=== PATIENT | female | born 1995 | race Caucasian/White ===

== ENCOUNTER → 2023-12-18 14:05 | Outpatient (REF) | payer OTHER, SELFPAY | LOC: WDC 14:05 | PROVIDERS: ATTENDING PHYSICIAN Obstetrics & Gynecology; FAMILY PHYSICIAN Internal Medicine | DX: N63.22 Unspecified lump in the left breast, upper inner quadrant (principal) | CPT/HCPCS: 76642 ==

== ENCOUNTER → 2024-03-17 11:11 | Outpatient (REF) | payer OTHER, SELFPAY ==
[2024-03-17 13:34] LABS: Hepatitis B Surface Antigen Negative (Negative)
[2024-03-17 13:44] LABS: HIV Combo Negative (Negative)
[2024-03-17 13:51] LABS: Hepatitis B Surface Antibody Positive; Hepatitis C Antibody Negative (Negative)
== END ==
LOC: OHS 11:11
PROVIDERS: ATTENDING PHYSICIAN Nurse Practitioner Family
DX: Z57.8 Occupational exposure to other risk factors (principal)
CPT/HCPCS: 36415; 86706; 86803; 87340; 87389

== ENCOUNTER → 2024-05-07 16:50 | Outpatient (REF) | payer OTHER, SELFPAY ==
[2024-05-16 21:03] LABS: Chlamydia trachomatis,ThinPrep Negative (Negative); Neisseria gonorrhoeae,ThinPrep Negative (Negative); Specimen Source Cervical
== END ==
LOC: CPAP 16:50
PROVIDERS: ATTENDING PHYSICIAN Nurse Practitioner Family
DX: Z11.3 Encounter for screening for infections with a predominantly sexual mode of transmission (principal); Z32.01 Encounter for pregnancy test, result positive; Z11.51 Encounter for screening for human papillomavirus (HPV)
CPT/HCPCS: 87491; 87591

== ENCOUNTER → 2024-05-08 15:26 | Outpatient (REF) | payer OTHER, SELFPAY ==
[2024-05-08 17:18] LABS: % Basophils 0.5 % (0-2); % Eosinophils 0.8 % (0-6); % Immature Granulocytes 0.4 % (0-0.5); % Lymphocytes 26.5 % (20.5-51.1); % Neutrophils 65.8 % (42.2-75.2); Absolute Basophils 0.1 10^3/uL (0-0.2); Absolute Eosinophils 0.1 10^3/uL (0-0.7); Absolute Lymphocytes 2.8 10^3/uL (1.2-3.4); Absolute Monocytes 0.6 10^3/uL (0.1-0.6); Hematocrit 35.5 % (37.0-47.0); Hemoglobin 12.3 g/dL (12.0-16.0); Mean Corp Hgb Conc. 34.6 g/dL (33.0-37.0); Mean Corpuscular Hgb 30.4 pg (27.0-31.0); Mean Corpuscular Volume 87.7 fL (81.0-99.0); Mean Platelet Volume 10.7 fL (7.4-10.4); Nucleated Red Blood Cells % 0 %; Platelet Count 196 10^3/uL (130-400); Red Blood Cell Count 4.05 10^6/uL (4.20-5.40); Urine Albumin Negative (Neg - Trace); Urine Bilirubin Negative (Negative); Urine Character Clear (Clear); Urine Color Yellow; Urine Glucose Negative (Negative); Urine Ketone Negative (Negative); Urine Leukocyte 1+ (Negative); Urine Nitrite Negative (Negative); Urine Occult Blood Negative (Negative); Urine Urobilinogen Negative (Neg - 1+); White Blood Cell Count 10.6 10^3/uL (4.8-10.8)
[2024-05-08 17:46] LABS: Urine Bacteria Few (Negative); Urine Red Blood Cell 0-2 /HPF (0-2); Urine Squamous Cell 26-30 /LPF (Few); Urine White Cell 30-40 /HPF (0-5)
[2024-05-08 20:02] LABS: Hepatitis B Surface Antigen Negative (Negative)
[2024-05-08 20:19] LABS: Hepatitis C Antibody Negative (Negative)
[2024-05-09 09:45] LABS: Glycohemoglobin (HgbA1c) 4.8 % (4.0-5.6)
[2024-05-09 15:06] LABS: Syphilis/T. pallidum Ab Reflex Negative (Negative)
== END ==
LOC: REG 15:26
PROVIDERS: ATTENDING PHYSICIAN Nurse Practitioner Family; FAMILY PHYSICIAN Internal Medicine
DX: Z31.430 Encounter of female for testing for genetic disease carrier status for procreative management (principal); Z32.01 Encounter for pregnancy test, result positive
CPT/HCPCS: 81003; 81015; 81220; 81243; 83036; 84702; 85025; 86780; 86803; 86850; 86900; 86901; 87086; 87340; 87389

== ENCOUNTER → 2024-05-19 08:14 | Outpatient (REF) | payer OTHER, SELFPAY ==
[2024-05-19 09:23] LABS: Hematocrit 38.8 % (37.0-47.0); Hemoglobin 13.5 g/dL (12.0-16.0); Mean Corp Hgb Conc. 34.8 g/dL (33.0-37.0); Mean Corpuscular Hgb 30.4 pg (27.0-31.0); Mean Corpuscular Volume 87.4 fL (81.0-99.0); Mean Platelet Volume 10.5 fL (7.4-10.4); Platelet Count 188 10^3/uL (130-400); Red Blood Cell Count 4.44 10^6/uL (4.20-5.40)
[2024-05-19 09:37] LABS: ALT (SGPT) 21 U/L (0-35); AST (SGOT) 20 U/L (14-36); Albumin 4.8 g/dl (3.5-5.0); Alkaline Phosphatase 82 U/L (38-126); Blood Urea Nitrogen 10 mg/dl (7-17); Calcium 9.6 mg/dl (8.4-10.2); Carbon Dioxide 22 mmol/L (22-30); Chloride 103 mmol/L (98-107); Direct Bilirubin 0.2 mg/dl (0.0-0.4); Glucose 88 mg/dl (70-99); Potassium 4.4 mmol/L (3.5-5.1); Sodium 136 mmol/L (135-145); Total Protein 7.1 g/dl (6.3-8.2); eGFR > 60.00
[2024-05-19 11:07] LABS: Hepatitis B Surface Antigen Negative (Negative)
[2024-05-19 11:16] LABS: HIV Combo Negative (Negative)
[2024-05-19 11:25] LABS: Hepatitis B Surface Antibody Positive; Hepatitis C Antibody Negative (Negative)
== END ==
LOC: OHS 08:14
PROVIDERS: ATTENDING PHYSICIAN Nurse Practitioner Family
DX: Z57.8 Occupational exposure to other risk factors (principal)
CPT/HCPCS: 36415; 80053; 82248; 85027; 86706; 86803; 87340; 87389

== ENCOUNTER → 2024-05-27 14:43 | Outpatient (REF) | payer OTHER, SELFPAY | LOC: WDC 14:43 | PROVIDERS: ATTENDING PHYSICIAN Nurse Practitioner Family | DX: R92.8 Other abnormal and inconclusive findings on diagnostic imaging of breast (principal); N63.10 Unspecified lump in the right breast, unspecified quadrant; N60.19 Diffuse cystic mastopathy of unspecified breast | CPT/HCPCS: 76642 ==

== ENCOUNTER → 2024-06-12 15:35 | Outpatient (REF) | payer OTHER, SELFPAY | LOC: PNTC 15:35 | PROVIDERS: ATTENDING PHYSICIAN Obstetrics & Gynecology | DX: Z34.01 Encounter for supervision of normal first pregnancy, first trimester (principal) | CPT/HCPCS: 36415 ==

== ENCOUNTER → 2024-06-17 13:42 | Outpatient (REF) | payer OTHER, SELFPAY | LOC: PNTC 13:42 | PROVIDERS: ATTENDING PHYSICIAN Obstetrics & Gynecology | DX: Z36.0 Encounter for antenatal screening for chromosomal anomalies (principal); Z36.82 Encounter for antenatal screening for nuchal translucency | CPT/HCPCS: 76801; 76813 ==

== ENCOUNTER → 2024-07-03 15:12 | Outpatient (REF) | payer OTHER, SELFPAY ==
[2024-07-03 18:55] LABS: Hepatitis B Core Ab, Total Negative (Negative); Hepatitis B Surface Antibody Positive
[2024-07-03 20:27] LABS: Rubella Positive
== END ==
LOC: REG 15:12
PROVIDERS: ATTENDING PHYSICIAN Obstetrics & Gynecology; FAMILY PHYSICIAN Internal Medicine
DX: Z34.92 Encounter for supervision of normal pregnancy, unspecified, second trimester (principal)
CPT/HCPCS: 36415; 82105; 86704; 86706; 86762

== ENCOUNTER 2024-07-25 13:23 | Observation (INO) | payer OTHER, SELFPAY ==
[2024-07-25 13:40] VITALS: BP 124/83; BMI 23.2
== END 2024-07-25 13:58 | disposition home or self-care (01) ==
LOC: LDRP 13:23
PROVIDERS: ADMITTING PHYSICIAN Obstetrics & Gynecology; FAMILY PHYSICIAN Internal Medicine
DX: O26.892 Other specified pregnancy related conditions, second trimester (principal); R10.9 Unspecified abdominal pain; Z3A.18 18 weeks gestation of pregnancy; W01.0XXA Fall on same level from slipping, tripping and stumbling without subsequent striking against object, initial encounter; Y93.9 Activity, unspecified; Y92.239 Unspecified place in hospital as the place of occurrence of the external cause; Y99.0 Civilian activity done for income or pay; Z88.0 Allergy status to penicillin
CPT/HCPCS: 59899; G0378

== ENCOUNTER → 2024-09-22 15:13 | Outpatient (REF) | payer OTHER, SELFPAY ==
[2024-09-22 17:23] LABS: % Basophils 0.3 % (0-2); % Eosinophils 0.2 % (0-6); % Immature Granulocytes 0.4 % (0-0.5); % Lymphocytes 16.7 % (20.5-51.1); % Neutrophils 78.4 % (42.2-75.2); Absolute Immature Granulocytes 0.1 10^3/uL (0-0.05); Absolute Lymphocytes 2.2 10^3/uL (1.2-3.4); Absolute Monocytes 0.5 10^3/uL (0.1-0.6); Absolute Neutrophils 10.5 10^3/uL (1.4-6.5); Hematocrit 33.6 % (37.0-47.0); Hemoglobin 11.8 g/dL (12.0-16.0); Mean Corp Hgb Conc. 35.1 g/dL (33.0-37.0); Mean Corpuscular Hgb 31.6 pg (27.0-31.0); Mean Corpuscular Volume 90.1 fL (81.0-99.0); Mean Platelet Volume 11.1 fL (7.4-10.4); Nucleated Red Blood Cells % 0 %; Platelet Count 168 10^3/uL (130-400); Red Blood Cell Count 3.73 10^6/uL (4.20-5.40); Red Cell Dist. Width 12.9 % (11.5-14.5); White Blood Cell Count 13.4 10^3/uL (4.8-10.8)
[2024-09-22 17:29] LABS: 1 Hour after 50gm 156 mg/dl
[2024-09-23 14:10] LABS: Syphilis/T. pallidum Ab Reflex Negative (Negative)
== END ==
LOC: REG 15:13
PROVIDERS: ATTENDING PHYSICIAN Obstetrics & Gynecology
DX: Z34.93 Encounter for supervision of normal pregnancy, unspecified, third trimester (principal)
CPT/HCPCS: 36415; 82950; 85025; 86780

== ENCOUNTER → 2024-10-01 06:49 | Outpatient (REF) | payer OTHER, SELFPAY ==
[2024-10-01 07:23] LABS: Glucose for Tolerance Test 60 mg/dl
[2024-10-01 10:49] LABS: Glucose for Tolerance Test 168 mg/dl
[2024-10-01 10:53] LABS: Glucose for Tolerance Test 171 mg/dl
[2024-10-01 12:03] LABS: Glucose for Tolerance Test 148 mg/dl
== END ==
LOC: REG 06:49
PROVIDERS: ATTENDING PHYSICIAN Obstetrics & Gynecology; FAMILY PHYSICIAN Internal Medicine
DX: Z34.90 Encounter for supervision of normal pregnancy, unspecified, unspecified trimester (principal)
CPT/HCPCS: 36415; 82951

== ENCOUNTER → 2024-10-14 15:27 | Outpatient (REF) | payer OTHER, SELFPAY ==
--- NOTE | 2024-10-14 14:29 | PN.DIAED06 ---
Meal Plan - Gestational
- Breakfast
Gestational Diabetes Meal Plan Name: 2000 calories
Breakfast - Total Carbohydrate (grams): 45 (1 carb = 15 grams)
Breakfast - Starch Carbohydrate: 2 (carbs = starch, milk, fruit)
Breakfast - Fruit Carbohydrate: 0 (no fruit or juice before noon)
Breakfast - Milk Carbohydrate: 1
Breakfast - Nonstarchy Vegetables: Yes
Breakfast - Meat/Protein: 1 (1 serving protein = 1 oz = 7 grams)
Breakfast - Fat: 2 (1 fat serving = 5 grams)
- Morning Snack
Morning Snack - Total Carbohydrate (grams): 30
Morning Snack - Starch Carbohydrate: 1
Morning Snack - Fruit Carbohydrate: 0 (no fruit or juice before noon)
Morning Snack - Milk Carbohydrate: 1
Morning Snack - Nonstarchy Vegetables: Yes
Morning Snack - Meat/Protein: 0
Morning Snack - Fat: 0
- Lunch
Lunch - Total Carbohydrate (grams): 45
Lunch - Starch Carbohydrate: 1
Lunch - Fruit Carbohydrate: 1
Lunch - Milk Carbohydrate: 1
Lunch - Nonstarchy Vegetables: Yes
Lunch - Meat/Protein: 2
Lunch - Fat: 2
- Afternoon Snack
Afternoon Snack - Total Carbohydrate (grams): 30
Afternoon Snack - Starch Carbohydrate: 1
Afternoon Snack - Fruit Carbohydrate: 1
Afternoon Snack - Milk Carbohydrate: 0
Afternoon Snack - Nonstarchy Vegetables: Yes
Afternoon Snack - Meat/Protein: 1
Afternoon Snack - Fat: 0
- Dinner
Dinner - Total Carbohydrate (grams): 45
Dinner - Starch Carbohydrate: 2
Dinner - Fruit Carbohydrate: 1
Dinner - Milk Carbohydrate: 0
Dinner - Nonstarchy Vegetables: Yes
Dinner - Meat/Protein: 2
Dinner - Fat: 2
- Evening Snack
Evening Snack - Total Carbohydrate (grams): 45
Evening Snack - Starch Carbohydrate: 1
Evening Snack - Fruit Carbohydrate: 1
Evening Snack - Milk Carbohydrate: 1
Evening Snack - Nonstarchy Vegetables: Yes
Evening Snack - Meat/Protein: 1
Evening Snack - Fat: 0
--- NOTE | 2024-10-15 08:59 | PN.DE ---
Diabetes Education
- -
10/14/2024 GESTATIONAL DIABETES CONSULT
Met with Ann bartlett for medical nutrition therapy. G1,P0, currently at 30 weeks of gestation, with an GENOVEVA of 12/24/2024.
Explained glucose metabolism in body and what occurs during to cause increase blood sugar. Discussed importance of keeping BS well controlled to avoid complications to the baby during and after (macrosomia, hypoglycemia). I explained
that stress and lack of sleep can also increase glucose levels, she states that her sleep is interrupted and does feel high stress. Discuss importance of 6+ hours a night and encouraged stress management techniques.
Discussed macronutrients, provided with 2000 teddy GDM meal plan and proper food combination and portions of carbohydrates, proteins, healthy fats.
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 Encouraged additional activity to help keep glucose low.
I provided her with a Contout Next glucometer, she presented with lancets and test strips. She is skilled in checking glucose with a glucometer, verbally proper testing technique, testing sites and testing pattern. She is aware to test FBS and 2
hr pp each meal. Expected results for FBS <95 mg/dl and 2 hr pp <120 mg/dl. Noted for blood sugar of 116mg/dl 1 hr after breakfast this morning. Log sheet provided for her to record results, she will send a 4-day meal log with all her FBG and 2hr
Post prandial glucose numbers to this office for review. In addition, she will send all her glucose readings [facility] every Sunday.
She was encouraged to reach out should she require insulin.
== END ==
LOC: DES 15:27
PROVIDERS: ATTENDING PHYSICIAN Obstetrics & Gynecology
DX: O24.419 Gestational diabetes mellitus in pregnancy, unspecified control (principal)
CPT/HCPCS: 99078

== ENCOUNTER → 2024-10-23 10:54 | Outpatient (REF) | payer OTHER, SELFPAY | LOC: PNTC 10:54 | PROVIDERS: ATTENDING PHYSICIAN Student in an Organized Health Care Education/Training Program | DX: O24.419 Gestational diabetes mellitus in pregnancy, unspecified control (principal) | CPT/HCPCS: 76816 ==

== ENCOUNTER → 2024-11-20 13:21 | Outpatient (REF) | payer OTHER, SELFPAY | LOC: PNTC 13:21 | PROVIDERS: ATTENDING PHYSICIAN Obstetrics & Gynecology | DX: O24.419 Gestational diabetes mellitus in pregnancy, unspecified control (principal) | CPT/HCPCS: 76816 ==

== ENCOUNTER → 2024-11-28 15:59 | Outpatient (REF) | payer OTHER, SELFPAY | LOC: CLAB 15:59 | PROVIDERS: ATTENDING PHYSICIAN Obstetrics & Gynecology | DX: Z36.85 Encounter for antenatal screening for Streptococcus B (principal) | CPT/HCPCS: 87070 ==

== ENCOUNTER → 2024-12-18 13:22 | Outpatient (REF) | payer OTHER, SELFPAY | LOC: PNTC 13:22 | PROVIDERS: ATTENDING PHYSICIAN Student in an Organized Health Care Education/Training Program | DX: O24.419 Gestational diabetes mellitus in pregnancy, unspecified control (principal) | CPT/HCPCS: 76816 ==

== ENCOUNTER 2024-12-24 19:32 | Inpatient (IN) | payer OTHER, SELFPAY ==
[2024-12-24 19:47] VITALS: BMI 23.5
[2024-12-24 19:49] VITALS: BP 138/89
[2024-12-24 20:14] LABS: Hematocrit 34.9 % (37.0-47.0); Hemoglobin 12.6 g/dL (12.0-16.0); Mean Corp Hgb Conc. 36.1 g/dL (33.0-37.0); Mean Corpuscular Volume 87.7 fL (81.0-99.0); Nucleated Red Blood Cells % 0 %; Platelet Count 118 10^3/uL (130-400); Red Cell Dist. Width 12.3 % (11.5-14.5)
[2024-12-24] MEDS: LR 1000 IV (20:49)
[2024-12-24] MEDS: PITOCIN 30 UNITS/NSS 500 ML IV (20:49)
[2024-12-24 21:27] LABS: ALT (SGPT) 20 U/L (0-35); AST (SGOT) 25 U/L (14-36); Albumin 3.7 g/dl (3.5-5.0); Alkaline Phosphatase 250 U/L (38-126); Blood Urea Nitrogen 28 mg/dl (7-17); Calcium 9.0 mg/dl (8.4-10.2); Carbon Dioxide 21 mmol/L (22-30); Chloride 102 mmol/L (98-107); Estimated Creatinine Clearance 76 ml/min; Glucose 72 mg/dl (70-99); Potassium 3.9 mmol/L (3.5-5.1); Sodium 130 mmol/L (135-145); Total Protein 6.4 g/dl (6.3-8.2); eGFR > 60.00
[2024-12-25 03:39] LABS: Glucose - Point of Care 78 mg/dl (70-99)
[2024-12-25] MEDS: LR 1000 IV ×2 (04:35→13:56)
[2024-12-25] MEDS: FENTANYL/BUPIVACAINE 100 EPIDURAL ×2 (04:39→13:56)
[2024-12-25] MEDS: SUBLIMAZE 100 MCG EPIDURAL (04:39)
[2024-12-25 06:38] LABS: Glucose - Point of Care 74 mg/dl (70-99)
[2024-12-25 08:30] LABS: Glucose - Point of Care 80 mg/dl (70-99)
[2024-12-25] MEDS: TUMS CHEWABLE TABLET 400 MG PO (10:37)
[2024-12-25 10:43] LABS: Glucose - Point of Care 72 mg/dl (70-99)
[2024-12-25 12:45] LABS: Glucose - Point of Care 82 mg/dl (70-99)
[2024-12-25] MEDS: HEMABATE 250 MCG IM (14:38)
[2024-12-25] MEDS: TRANEXAMIC ACID 100 IV (14:39)
[2024-12-25] MEDS: CYTOTEC 800 MCG SL (14:44)
[2024-12-25] MEDS: METHERGINE INJECTION 0.2 MG IM (14:47)
[2024-12-25 15:05] LABS: Hematocrit 36.2 % (37.0-47.0); Hemoglobin 13.0 g/dL (12.0-16.0)
[2024-12-25] MEDS: ZOFRAN 4 MG IV (15:10)
[2024-12-25 15:23] LABS: INR 0.89; PT 12.6 Sec (11.4-14.6)
[2024-12-25 15:24] LABS: APTT 27.3 Sec (23.4-35.0)
[2024-12-25 15:37] LABS: Mean Corp Hgb Conc. 36.4 g/dL (33.0-37.0); Mean Corpuscular Volume 88.1 fL (81.0-99.0); Nucleated Red Blood Cells % 0 %; Platelet Count 139 10^3/uL (130-400); Red Cell Dist. Width 12.3 % (11.5-14.5)
[2024-12-25] MEDS: GENTAMICIN 58 MG IV (17:01)
[2024-12-25] MEDS: CLEOCIN 50 IV (17:53)
[2024-12-25] MEDS: TYLENOL 650 MG PO (20:06)
[2024-12-25] MEDS: PEPCID 40 MG PO (21:56)
[2024-12-26] MEDS: CLEOCIN 50 IV ×2 (01:55→10:06)
[2024-12-26 04:53] LABS: Hematocrit 32.6 % (37.0-47.0); Hemoglobin 11.4 g/dL (12.0-16.0); Mean Corp Hgb Conc. 35.0 g/dL (33.0-37.0); Mean Corpuscular Volume 88.6 fL (81.0-99.0); Nucleated Red Blood Cells % 0 %; Platelet Count 107 10^3/uL (130-400); Red Cell Dist. Width 12.6 % (11.5-14.5)
[2024-12-26] MEDS: TYLENOL 650 MG PO ×2 (06:32→20:01)
[2024-12-26 07:46] LABS: Cap Blood Urea Nitrogen - POC 16 mg/dl (3-13); Cap Hemoglobin Calculated -POC 14.8; Capillary Blood Gas B.E. - POC -4.3 mmol/L; Capillary Blood Gas HCO3 - POC 24 mmol/L (13-22); Capillary Blood Gas pCO2 - POC 53 mmHg (27-70); Capillary Blood Gas pH -POC 7.25 (7.27-7.47); Capillary Blood Gas pO2 - POC < 18 mmHg (84-95); Capillary Chloride - POC 100 mmol/L (96-111); Capillary Creatinine - POC 0.77 mg/dl (0.3-1.0); Capillary Glucose - POC 78 mg/dl (40-115); Capillary Hematocrit - POC 43 % PCV (42-60); Capillary Ionized Calcium -POC 1.55 mmol/L (1.15-1.33); Capillary Potassium - POC 4.4 mmol/L (3.2-5.5); Capillary Sodium - POC 131 mmol/L (133-146)
[2024-12-26] MEDS: PRENATAL PLUS 1 TABLET PO (07:53)
[2024-12-26 08:18] LABS: Cord VBG B.E. - POC -4.6 mmol/L; Cord VBG HCO3 - POC 21 mmol/L; Cord VBG pCO2 - POC 41 mmHg; Cord VBG pH - POC 7.32; Cord VBG pO2 - POC < 18 mmHg
[2024-12-26 13:16] LABS: Syphilis/T. pallidum Ab Reflex Negative (Negative)
[2024-12-26] MEDS: PEPCID 40 MG PO (22:06)
[2024-12-27] MEDS: TYLENOL 650 MG PO ×2 (03:19→08:07)
[2024-12-27] MEDS: PRENATAL PLUS 1 TABLET PO (08:07)
== END 2024-12-27 11:09 | disposition home or self-care (01) | DRG 768 ==
LOC: LDRP 19:32
PROVIDERS: Obstetrics & Gynecology; ADMITTING PHYSICIAN Obstetrics & Gynecology
PROC: 0W8NXZZ Division of Female Perineum, External Approach (ICD-10-PCS; 2024-12-24)
PROC: 10D07Z6 Extraction of Products of Conception, Vacuum, Via Natural or Artificial Opening (ICD-10-PCS; 2024-12-24)
PROC: 3E033VJ Introduction of Other Hormone into Peripheral Vein, Percutaneous Approach (ICD-10-PCS; 2024-12-24)
PROC: 4A1HXCZ Monitoring of Products of Conception, Cardiac Rate, External Approach (ICD-10-PCS; 2024-12-24)
PROC: 0W3R7ZZ Control Bleeding in Genitourinary Tract, Via Natural or Artificial Opening (ICD-10-PCS; 2024-12-25)
PROC: 30233N1 Transfusion of Nonautologous Red Blood Cells into Peripheral Vein, Percutaneous Approach (ICD-10-PCS; 2024-12-25)
DX: O48.0 Post-term pregnancy (principal); Z37.0 Single live birth; O72.1 Other immediate postpartum hemorrhage; O24.420 Gestational diabetes mellitus in childbirth, diet controlled; Z3A.40 40 weeks gestation of pregnancy; O76 Abnormality in fetal heart rate and rhythm complicating labor and delivery; Z88.0 Allergy status to penicillin; O63.1 Prolonged second stage (of labor)
CPT/HCPCS: 80053; 82570; 82962; 84156; 85014; 85018; 85025; 85610; 85730; 86780; 86850; 86900; 86901; 86920; 88307; P9016

== ENCOUNTER → 2025-02-19 12:44 | Outpatient (REF) | payer OTHER, SELFPAY ==
[2025-02-19 13:59] LABS: Hematocrit 38.1 % (37.0-47.0); Hemoglobin 12.8 g/dL (12.0-16.0); Mean Corp Hgb Conc. 33.6 g/dL (33.0-37.0); Mean Corpuscular Volume 87.8 fL (81.0-99.0); Nucleated Red Blood Cells % 0 %; Platelet Count 234 10^3/uL (130-400); Red Cell Dist. Width 12.0 % (11.5-14.5)
[2025-02-19 14:03] LABS: INR 0.98; PT 13.5 Sec (11.4-14.6)
[2025-02-19 14:04] LABS: APTT 30.1 Sec (23.4-35.0)
[2025-02-19 14:46] LABS: Beta HCG Quantitative < 2.39 mIU/ml; FSH 8.2 mIU/ml
== END ==
LOC: RAD 12:44
PROVIDERS: ATTENDING PHYSICIAN Obstetrics & Gynecology; FAMILY PHYSICIAN Internal Medicine
DX: N92.1 Excessive and frequent menstruation with irregular cycle (principal)
CPT/HCPCS: 36415; 76830; 76856; 82670; 83001; 83002; 84146; 84443; 84702; 85025; 85610; 85730